=== PATIENT | male | born 1990 | race Caucasian/White ===

== ENCOUNTER 2017-10-20 16:03 | Emergency (ER) | payer BC, SELFPAY ==
[2017-10-20] MEDS ORDERED: TETANUS & DIPHTHERIA TOX,ADULT 0.5 ML VIAL ONE (16:42)
[2017-10-20] MEDS ORDERED: HYDROCODONE/APAP 10/325 TAB ONE (16:42)
--- NOTE | 2017-10-20 17:12 | RAD REPORT ---
EXAM DESCRIPTION: RAD - Foot Right 3 View - 10/20/2017 5:06 pm CLINICAL HISTORY: Great toe pain and swelling. COMPARISON: None. FINDINGS: Soft tissue swelling is present affecting the great toe. No fracture, dislocation or radio paque foreign body. No evidence of osteomyelitis. No subcutaneous gas. IMPRESSION: Soft tissue swelling affecting the great toe.
--- NOTE | 2017-10-20 17:51 | EDPHYS ---
Physician Documentation [facility] Name: Andrew Raymond Age: 27 yrs Sex: Male : 1990 Arrival Date: 10/20/2017 Time: 16:08 Bed 9 Private MD: ED Physician Clint Tam HPI: 10/20 16:47 This 27 yrs old Male presents to ER via Ambulatory with complaints of rn Puncture Wound. 16:47 Mechanism of injury: Penetrating trauma: inflicted by sting. Associated injuries: The rn patient sustained right foot. Onset: The symptoms/episode began/occurred just prior to arrival. The patient has not experienced similar symptoms in the past. Reports in water/ocean, felt pain to right great toe, thinks maybe keshia stuck in toe, no other symptoms, did not see what got him, + local swelling and pain.. Historical: - Allergies: 16:10 SHELLFISH; aa5 - PMHx: 16:09 None; aa5 - PSHx: 16:09 None; aa5 - Immunization history:: Last tetanus immunization: unknown. - Social history:: Smoking status: Patient/guardian denies using tobacco. - Ebola Screening: : No symptoms or risks identified at this time. - Family history:: not pertinent. - Hospitalizations: : No recent hospitalization is reported. ROS: 16:47 Constitutional: Negative for fever, chills, and weight loss, Abdomen/GI: Negative for rn abdominal pain, nausea, vomiting, diarrhea, and constipation, MS/Extremity: Negative for deformity, Neuro: Negative for headache, weakness, numbness, tingling, and seizure. Exam: 16:47 Constitutional: This is a well developed, well nourished patient who is awake, alert, rn and in no acute distress. MS/ Extremity: Pulses equal, no cyanosis. Neurovascular intact. Full, normal range of motion. Equal circumference. + right great toe with mild swelling, appears to have approx 2cm foreign body at base of right great toe. Vital Signs: 16:10 BP 138 / 88; Pulse 96; Resp 18 S; Temp 98.2(TE); Pulse Ox 98% on R/A; Weight 77.11 kg aa5 (R); Height 6 ft. 2 in. (187.96 cm) (R); Pain 8/10; 17:30 BP 130 / 80; Pulse 90; Resp 16; Pulse Ox 98% on R/A; kr2 16:10 Body Mass Index 21.83 (77.11 kg, 187.96 cm) aa5 MDM: 16:23 Patient medically screened. rn 17:47 Differential diagnosis: puncture wound, sting, stingray envenomation. Data reviewed: rn vital signs, nurses notes, radiologic studies, plain films, and as a result, I will discharge patient. Counseling: I had a detailed discussion with the patient and/or guardian regarding: the historical points, exam findings, and any diagnostic results supporting the discharge/admit diagnosis, radiology results, the need for outpatient follow up, to return to the emergency department if symptoms worsen or persist or if there are any questions or concerns that arise at home. Special discussion: I discussed with the patient/guardian in detail that at this point there is no indication for admission to the hospital. It is understood, however, that if the symptoms persist or worsen the patient needs to return immediately for re-evaluation. ED course: Bedside ultrasound performed by Dr. Tam, no foreign body identified, this paired with negative plain films, unlikely residual foreign body in toe, unsure what caused puncture, but since was in water, will dc home with abx, and return precautions understood.. 10/20 16:28 Order name: XRAY Foot RIGHT 3 View; Complete Time: 17:12 rn Administered Medications: 16:30 Drug: [place] 10 mg-325 mg 1 tabs Route: PO; kr2 18:01 Follow up: Response: No adverse reaction; Pain is decreased kr2 17:26 Drug: Tetanus-Diphtheria Toxoid Adult 0.5 ml {[employer] Underwriter: [employer]. Exp: kr2 01/15/2020. Lot #: [id number]. } Route: IM; Site: left deltoid; 18:01 Follow up: Response: No adverse reaction kr2 Disposition: 10/20/17 17:50 Discharged to Home. Impression: Puncture wound without foreign body of right great toe without damage to nail. - Condition is Stable. - Discharge Instructions: Puncture Wound. - Prescriptions for Keflex 500 mg Oral Capsule - take 1 capsule by ORAL route every 12 hours for 10 days; 20 capsule. Doxycycline Monohydrate 100 mg Oral Tablet - take 1 tablet by ORAL route every 12 hours for 10 days; 20 tablet. - Medication Reconciliation Form, Thank You Letter, Antibiotic Education, Prescription Opioid Use form. - Follow up: Private Physician; When: As needed; Reason: Recheck today's complaints, Re-evaluation by your physician. - Problem is new. - Symptoms have improved. Signatures: Dispatcher [employer] EDMS Clint Tam MD MD rn Calderon, Audri, RN RN aa5 Debby Jacinto RN RN kr2 Corrections: (The following items were deleted from the chart) 16:10 16:09 Allergies: No Known Allergies; aaCathy aa5 18:04 17:50 10/20/2017 17:50 Discharged to Home. Impression: Puncture wound without foreign kr2 body of right great toe without damage to nail. Condition is Stable. Forms are Medication Reconciliation Form, Thank You Letter, Antibiotic Education, Prescription Opioid Use. Follow up: Private Physician; When: As needed; Reason: Recheck today's complaints, Re-evaluation by your physician. Problem is new. Symptoms have improved. rn
--- NOTE | 2017-10-20 17:51 | ER ---
Nurse's Notes [facility] Name: Andrew Raymond Age: 27 yrs Sex: Male : 1990 Arrival Date: 10/20/2017 Time: 16:08 Bed 9 Private MD: Diagnosis: Puncture wound without foreign body of right great toe without damage to nail Presentation: 10/20 16:08 Presenting complaint: Patient states: "I think I got stung by something in the water". aa5 pt c/o pain to right foot. Care prior to arrival: None. 16:08 Method Of Arrival: Ambulatory aa5 16:08 Acuity: TRACEY 4 aa5 16:10 Transition of care: patient was not received from another setting of care. Onset of kr2 symptoms was October 20, 2017. Risk Assessment: Do you want to hurt yourself or someone else? Patient reports no desire to harm self or others. Initial Sepsis Screen: Does the patient meet any 2 criteria? No. Patient's initial sepsis screen is negative. Does the patient have a suspected source of infection? Yes: Skin breakdown/wound. Historical: - Allergies: 16:10 SHELLFISH; aa5 - PMHx: 16:09 None; aa5 - PSHx: 16:09 None; aa5 - Immunization history:: Last tetanus immunization: unknown. - Social history:: Smoking status: Patient/guardian denies using tobacco. - Ebola Screening: : No symptoms or risks identified at this time. - Family history:: not pertinent. - Hospitalizations: : No recent hospitalization is reported. Screenin:10 Abuse screen: Denies threats or abuse. Denies injuries from another. Nutritional kr2 screening: No deficits noted. Tuberculosis screening: No symptoms or risk factors identified. Fall Risk None identified. Assessment: 16:10 General: Appears in no apparent distress. comfortable, well groomed, well developed, kr2 well nourished, Behavior is calm, cooperative, appropriate for age. Pain: Complains of pain in right great toe Pain currently is 5 out of 10 on a pain scale. Quality of pain is described as burning, stinging, Pain began 1 hour ago. Is continuous, Alleviated by rest, Aggravated by weight bearing. Neuro: Level of Consciousness is awake, alert, obeys commands, Oriented to person, place, time, situation, Appropriate for age Intact. Cardiovascular: Capillary refill < 3 seconds in bilateral fingers Patient's skin is warm and dry. Respiratory: Airway is patent Respiratory effort is even, unlabored, Respiratory pattern is regular, symmetrical. Derm: Skin is healthy with good turgor, Skin is pink, warm \\T\\ dry. Wound noted right great toe Wound is puncture wound, patient was in the ocean and felt a sharp pain and stinging sensation in his toe. Small amount of bleeding and redness. Small amount of swelling. Musculoskeletal: Circulation, motion, and sensation intact. Range of motion: intact in all extremities. 17:45 Reassessment: Patient appears in no apparent distress at this time. Patient and/or kr2 family updated on plan of care and expected duration. Pain level reassessed. Patient is alert, oriented x 3, equal unlabored respirations, skin warm/dry/pink. Wound cleansed with Hibiclens and saline, antibiotic ointment applied, covered with non-stick dressing and gauze. Tolerated well. Vital Signs: 16:10 BP 138 / 88; Pulse 96; Resp 18 S; Temp 98.2(TE); Pulse Ox 98% on R/A; Weight 77.11 kg aa5 (R); Height 6 ft. 2 in. (187.96 cm) (R); Pain 8/10; 17:30 BP 130 / 80; Pulse 90; Resp 16; Pulse Ox 98% on R/A; kr2 16:10 Body Mass Index 21.83 (77.11 kg, 187.96 cm) aa5 ED Course: 16:08 Patient arrived in ED. aa5 16:09 Triage completed. aa5 16:09 Arm band placed on. aa5 16:10 Patient has correct armband on for positive identification. Call light in reach. Adult kr2 w/ patient. Door closed. 16:23 Debby Jacinto, ROSE MARIE is Primary Nurse. kr2 16:23 Clint Tam MD is Attending Physician. rn 17:03 X-ray completed. Portable x-ray completed in exam room. Patient tolerated procedure bb2 well. 17:04 XRAY Foot RIGHT 3 View In Process Unspecified. EDMS 17:59 No provider procedures requiring assistance completed. Patient did not have IV access kr2 during this emergency room visit. Administered Medications: 16:30 Drug: [place] 10 mg-325 mg 1 tabs Route: PO; kr2 18:01 Follow up: Response: No adverse reaction; Pain is decreased kr2 17:26 Drug: Tetanus-Diphtheria Toxoid Adult 0.5 ml {Cargo Mate: [employer]. Exp: kr2 01/15/2020. Lot #: [id number]. } Route: IM; Site: left deltoid; 18:01 Follow up: Response: No adverse reaction kr2 Outcome: 17:50 Discharge ordered by . rn 18:00 Discharged to home ambulatory, with family. kr2 18:00 Condition: good 18:00 Discharge instructions given to patient, family, Instructed on discharge instructions, follow up and referral plans. medication usage, wound care, Demonstrated understanding of instructions, follow-up care, medications, wound care, Prescriptions given X 2. 18:04 Patient left the ED. kr2 Signatures: Dispatcher [employer] EDMS Clint Tam MD MD rn Calderon, Audri RN RN aa5 Debby Jacinto RN RN kr2 Ana Singh bb2 Corrections: (The following items were deleted from the chart) 16:10 16:09 Allergies: No Known Allergies; aa5 aa5 18:02 17:30 Pulse 90bpm; Resp 16bpm; Pulse Ox 98% RA; kr2 kr2
== END 2017-10-20 18:04 | disposition home or self-care (01) ==
LOC: ER 16:03
DX: S91.131A Puncture wound without foreign body of right great toe without damage to nail, initial encounter (principal); W56.81XA Bitten by other nonvenomous marine animals, initial encounter; Z23 Encounter for immunization; Y93.9 Activity, unspecified; Y92.832 Beach as the place of occurrence of the external cause; Y99.9 Unspecified external cause status; Z91.013 Allergy to seafood
CPT/HCPCS: 90714; 99283